=== PATIENT | male | born 1945 | race Caucasian/White ===

== ENCOUNTER → 2016-10-10 | Outpatient (CLI) | payer MEDICARE ==
[~2016-10-10] MED LIST: BUPROPION HCL300 MG PO; BYSTOLIC5 MG PO; DULOXETINE60 MG PO; LAMOTRIGINE25 MG PO; LORAZEPAM2 MG PO; MIRTAZAPINE45 MG PO; XALATAN 0.005%2.5 M1 OP
[2016-10-10 11:57] LABS: LYMPH # 1.2 K/mm3 (0.7-4.5)
[2016-10-10 13:27] LABS: BUN 11 mg/dL (7-18)
[2016-10-10 13:28] LABS: GFR (ESTIMATED) 60 ML/MIN (>60); PROSTATE-SPECIFIC AG SCREEEN 5.3 ng/mL (0.0-4.0)
[2016-10-11 05:39] LABS: Vitamin D, 25-Hydroxy 38.9 ng/mL (30.0-100.0)
== END ==
LOC: LAB 11:29
PROVIDERS: Internal Medicine Adolescent Medicine
DX: E78.5 Hyperlipidemia, unspecified (principal); E55.9 Vitamin D deficiency, unspecified; R97.20 Elevated prostate specific antigen [PSA]; Z12.5 Encounter for screening for malignant neoplasm of prostate
CPT/HCPCS: G0103